=== PATIENT | male | born 1985 | race Caucasian/White ===

== ENCOUNTER 2017-12-02 03:44 | Emergency (ER) | payer OTHER ==
[~2017-12-02] VITALS: Ht 182.9 cm; Wt 90.7 kg
--- NOTE | ~2017-12-02 | EKG ---
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
[2017-12-02 04:03] LABS: HEMATOCRIT 45.9 % (42.0-52.0); HEMOGLOBIN 16.3 gm/dL (14.0-18.0); MCH 32.1 pg (26.0-34.0); MCHC 35.6 g/dL (28.0-37.0); MCV 90.1 fL (80.0-100.0); PLATELET COUNT 281 thou/uL (150-400); RDW 13.1 % (10.5-14.5); WBC 6.7 thou/uL (4.0-11.0)
[2017-12-02 04:11] LABS: ANION GAP 14 mmol/L (7-16); BUN 11 mg/dL (7-18); CALCIUM 9.2 mg/dL (8.5-10.1); CHLORIDE 101 mmol/L (98-107); CO2 23 mmol/L (21-32); CREATININE 1.2 mg/dL (0.7-1.3); GLUCOSE 138 mg/dL (74-106); POTASSIUM 3.7 mmol/L (3.5-5.1); SODIUM 138 mmol/L (136-145)
[2017-12-02 04:20] LABS: MAGNESIUM 1.8 mg/dL (1.8-2.4); SGOT 35 U/L (15-37); SGPT 39 U/L (30-65); TOTAL BILIRUBIN 0.3 mg/dL (<0.1-1.0); TOTAL PROTEIN 7.6 g/dL (6.4-8.2); TROPONIN-I < 0.04 ng/mL (<0.06)
[2017-12-02 04:32] LABS: URINE BILIRUBIN NEGATIVE (Negative); URINE BLOOD NEGATIVE (Negative); URINE CLARITY CLEAR; URINE COLOR YELLOW; URINE GLUCOSE-RANDOM* NEGATIVE (Negative); URINE KETONES NEGATIVE (Negative); URINE LEUKOCYTES-REFLEX NEGATIVE (Negative); URINE NITRITE-REFLEX NEGATIVE (Negative); URINE PROTEIN (DIPSTICK) NEGATIVE (Negative); URINE SPECIFIC GRAVITY 1.015 (1.005-1.035); URINE UROBILINOGEN 0.2 E.U./dl (0.2-1.0)
[2017-12-02 04:36] LABS: ABSOLUTE NEUTROPHILS 4.2 thou/uL (1.4-8.2); ATYPICAL LYMPHS 4 %; LARGE PLATELETS OCCASIONAL
[2017-12-02 04:40] LABS: AMP/METHAMP Negative (Negative); BARBITURATES Negative (Negative); BENZODIAZEPINES Negative (Negative); COCAINE POSITIVE (Negative); METHADONE Negative (Negative); OPIATES Negative (Negative); PCP Negative (Negative)
[2017-12-02] MEDS ORDERED: ATIVAN0.5 MG PO (04:40)
[2017-12-02] MEDS ORDERED: ZOFRAN ODT8 MG PO (04:40)
[2017-12-02] MEDS ORDERED: FLONASE 0.05%50 MCG NASAL (05:04)
[2017-12-02] MEDS ORDERED: OSELB75 PO (05:16)
== END 2017-12-02 05:53 | disposition home or self-care (01) ==
LOC: ER 03:44
PROVIDERS: Emergency Medicine
DX: J11.1 Influenza due to unidentified influenza virus with other respiratory manifestations (principal); J06.9 Acute upper respiratory infection, unspecified; R11.2 Nausea with vomiting, unspecified; F45.8 Other somatoform disorders; F14.10 Cocaine abuse, uncomplicated

== ENCOUNTER 2020-03-17 00:39 | Emergency (ER) | payer OTHER ==
[~2020-03-17] VITALS: Ht 182.9 cm; Wt 97.5 kg
[~2020-03-17 00:39] MED LIST: ATIVAN0.5 MG PO; FLONASE 0.05%50 MCG NASAL; OSELB75 PO; ZOFRAN ODT8 MG PO
[2020-03-17 00:40] VITALS: BP 166/115
[2020-03-17] MEDS ORDERED: AMOXICILLIN 50500 MG PO (00:49)
[2020-03-17] MEDS ORDERED: ROXICODONE5 M2 PO (01:27)
== END 2020-03-17 01:30 | disposition home or self-care (01) ==
LOC: ER 00:39
DX: K08.89 Other specified disorders of teeth and supporting structures (principal); Z79.899 Other long term (current) drug therapy